=== PATIENT | male | born 1970 | race Hispanic/Latino ===

== ENCOUNTER 2021-11-12 11:16 | Day surgery (SDC) | payer OTHER ==
[2021-11-09 11:03] LABS: BASOPHILS % (AUTO) 0.5 % (0.0-5.0); LYMPHOCYTES % (AUTO) 28.6 % (21.0-51.0); MEAN CORPUSCULAR HEMOGLOBIN 27.7 pg (27.0-33.0); MEAN CORPUSCULAR HGB CONC 32.4 g/dL (32.0-36.0); MEAN CORPUSCULAR VOLUME 85.2 fL (79-99); NEUTROPHILS % (AUTO) 60.8 % (40.0-77.0); PLATELET COUNT (AUTO) 234 K/uL (130-400); RED BLOOD CELL COUNT(AUTO) 5.28 MIL/uL (4.50-6.20); RED CELL DISTRIBUTION WIDTH 12.4 % (11.0-15.5); WHITE BLOOD COUNT (AUTO) 7.3 K/uL (4.8-10.8)
[2021-11-09 11:12] LABS: CREATININE 0.8 mg/dL (0.5-1.5); POTASSIUM 4.6 mmol/L (3.5-5.1)
[2021-11-09 11:14] LABS: PROTHROMBIN TIME 10.9 SEC (9.6-11.6)
[2021-11-09 11:16] LABS: PARTIAL THROMBOPLASTIN TIME 27.1 SEC (26.3-35.5)
[2021-11-09 11:54] LABS: APPEARANCE,URINE CLEAR (CLEAR); BILIRUBIN,URINE NEGATIVE (NEGATIVE); COLOR,URINE YELLOW (YELLOW); GLUCOSE, URINE (UA) NEGATIVE (NEGATIVE); KETONES,URINE NEGATIVE (NEGATIVE); LEUKOCYTE ESTERASE ,URINE NEGATIVE (NEGATIVE); NITRATE,URINE NEGATIVE (NEGATIVE); OCCULT BLOOD,URINE NEGATIVE (NEGATIVE); PH,URINE 5.5 (5.0-8.0); PROTEIN,URINE NEGATIVE (NEGATIVE); UROBILINOGEN,URINE 0.2 mg/dL (0.2-1.0)
[2021-11-09 11:55] LABS: B-TYPE NATRIURETIC PEPTIDE 112 pg/mL (0-100)
[2021-11-11 13:08] VITALS: BP 146/92
[2021-11-12] VITALS (10 sets, daily range): BP systolic 127–137; BP diastolic 82–97
[~2021-11-12] VITALS: Ht 172.7 cm; Wt 119.3 kg
[~2021-11-12 11:16] MED LIST: ATOR20TA65 PO; CARV3.12 PO; DULA1.5P SQ; FURO20TA4 PO; LOSA25TA41 PO; OMEP40CA21 PO
[2021-11-12] MEDS ORDERED: 0.9%NACL 1000ML 1,000 ML IV ONE (11:49)
[2021-11-12] MEDS ORDERED: IOHEXOL 350 MG/ML 100ML INFUS..BTL IV ONE (14:35)
[2021-11-12] MEDS ORDERED: MIDAZOLAM HCL 1 MG/ML 2ML VIAL ONE (14:35)
[2021-11-12] MEDS ORDERED: LIDOCAINE HCL 400MG/20ML VIAL ONE (14:35)
[2021-11-12] MEDS ORDERED: IOHEXOL-350 50ML VIAL IV ONE (14:35)
[2021-11-12] MEDS ORDERED: GLUCAGON 1MG KIT 1 MG ML IM PRN (15:30)
[2021-11-12] MEDS ORDERED: DEXTROSE 50%-WATER 50 ML DISP.SYRIN IV PRN (15:30)
== END 2021-11-12 18:25 | disposition home or self-care (01) ==
LOC: DAH 11:16
PROVIDERS: ATTEND Internal Medicine Cardiovascular Disease
DX: I25.5 Ischemic cardiomyopathy (principal); I44.7 Left bundle-branch block, unspecified; I50.42 Chronic combined systolic (congestive) and diastolic (congestive) heart failure; E11.9 Type 2 diabetes mellitus without complications; E78.5 Hyperlipidemia, unspecified; I25.2 Old myocardial infarction; E66.01 Morbid (severe) obesity due to excess calories; Z82.49 Family history of ischemic heart disease and other diseases of the circulatory system; Z98.890 Other specified postprocedural states; Z79.4 Long term (current) use of insulin; Z68.42 Body mass index [BMI] 45.0-49.9, adult
CPT/HCPCS: 80048; 83880; 85025; 85610; 85730; 81003; 36415; 71045; 93005; 93458; 82948 ×2; C1894; C1760; J3490; J7030; J1644; Q9967; A4215; A4222; A4221; A4663; A4216; A4606; Q9965; A4223 ×3; J2250